=== PATIENT | male | born 1965 | race African-American/Black ===

== ENCOUNTER 2024-01-22 17:47 | Inpatient (IN) | payer OTHER ==
[2024-01-22 18:59] VITALS: BMI 22.6
[2024-01-22] MEDS ORDERED: POLYETHYLENE GLYCOL (HEALTHYLAX) 3350 17 GM PACKET PO PRN (20:35)
[2024-01-22] MEDS ORDERED: BISMUTH SUBSALICYLATE 524 MG/30 ML PO PRN (20:35)
[2024-01-22] MEDS ORDERED: MAGNESIUM HYDROX 2400MG/30ML ORAL SUSPENSION 30 ML CUP PO PRN (20:35)
[2024-01-22] MEDS ORDERED: guaiFENesin 600 MG TABLET.ER (FP) PO PRN (20:35)
[2024-01-22] MEDS ORDERED: NICOTINE POLACRILEX 4 MG GUM BUC PRN (20:35)
[2024-01-22] MEDS ORDERED: BENZOCAINE/MENTHOL (CHLORASEPTIC ) LOZENGE MM PRN (20:35)
[2024-01-22] MEDS ORDERED: BENZONATATE 200 MG CAPSULE PO PRN (20:35)
[2024-01-22] MEDS ORDERED: IBUPROFEN 600 MG TABLET (FP) PO PRN (20:35)
[2024-01-22] MEDS ORDERED: NALOXONE (NARCAN) HCL 4 MG/0.1 ML SPRAY NS PRN (20:35)
[2024-01-22] MEDS ORDERED: IBUPROFEN 400 MG TABLET (FP) PO PRN (20:35)
[2024-01-22] MEDS ORDERED: NALOXONE HCL 0.4 MG/ML VIAL IM PRN (20:35)
[2024-01-22] MEDS ORDERED: INSULIN (NOVOLOG) ASPART 100 UNITS/ML 10ML VIAL SQ SCH (22:00)
[2024-01-22] MEDS ORDERED: INSULIN (LEVEMIR) 100 UNITS/ML UNITS SQ ONE (22:19)
[2024-01-22] MEDS: ASPIRIN COATED 81 MG TABLET.EC PO SCH (22:21)
[2024-01-22] MEDS: MELATONIN 5 MG TABLETS PO SCH (22:21)
[2024-01-22] MEDS: INSULIN (LEVEMIR) 100 UNITS/ML UNITS SQ ONE (22:21)
[2024-01-22] MEDS: ATORVASTATIN CA 20 MG TABLET (FP) PO SCH (22:21)
[2024-01-22] MEDS: INSULIN (NOVOLOG) ASPART 100 UNITS/ML 10ML VIAL SQ ONE (22:21)
[2024-01-22] MEDS: THIAMINE 100 MG TABLET PO SCH (22:22)
[2024-01-23] MEDS: INSULIN ASPART SLIDING SCALE (NOVOLOG) 1 VIAL SQ SCH ×2 (06:33→17:43)
[2024-01-23] MEDS: metFORMIN HCL 500 MG TABLET (FP) PO SCH (07:41)
[2024-01-23] MEDS: ACETAMINOPHEN 325 MG TABLET (FP) PO PRN (07:49)
[2024-01-23] MEDS: ONDANSETRON *ODT* 4 MG TABLET SL PRN (07:50)
[2024-01-23] MEDS: hydrOXYzine PAMOATE 25 MG CAPSULE (FP) PO PRN (07:50)
[2024-01-23] MEDS ORDERED: methaDONE HCL 10 MG TABLET PO SCH (08:30)
[2024-01-23] MEDS: cloNIDine HCL 0.1 MG TABLET PO SCH (09:10)
[2024-01-23] MEDS: methaDONE 40 MG, methaDONE 20 MG PO SCH (09:11)
[2024-01-23] MEDS: PRENATAL VITAMINS W/ FOLIC ACID TABLET (FP) PO SCH (09:12)
[2024-01-23] MEDS: methaDONE HCL 10 MG TABLET PO ONE (09:12)
[2024-01-23] MEDS: NICOTINE 14 MG/24 HOURS TOPICAL PATCH TD SCH (09:16)
[2024-01-23] MEDS: HYDROCHLOROTHIAZIDE 12.5 MG CAPSULE (FP) PO SCH (10:12)
[2024-01-23 11:46] LABS: HEMATOCRIT 35.5 % (35.4-49); HEMOGLOBIN 11.8 GM/dL (11.7-16.9); MCH 28.9 pg (25.7-33.7); MCHC 33.2 g/dl (32.0-35.9); MEAN CELL VOLUME 87.2 fl (80-96); MEAN PLT VOLUME 7.7 fl (7.5-11.1); PLATELET COUNT 298 10^3/uL (134-434); RBC 4.08 M/mm3 (4.00-5.60); RDW 16.2 % (11.9-15.9); WHITE BLOOD COUNT 5.1 K/mm3 (4.0-10.0)
[2024-01-23 11:59] LABS: CHLORIDE 97 mmol/L (98-107); POTASSIUM 3.9 mmol/L (3.5-5.1); SODIUM 134 mmol/L (136-145)
[2024-01-23 12:00] LABS: ALBUMIN 3.3 g/dl (3.4-5.0); ANION GAP 8 mmol/L (4-13); BLOOD UREA NITROGEN 26.1 mg/dL (7-18); CALCIUM 9.3 mg/dL (8.5-10.1); CO2 29 mmol/L (21-32)
[2024-01-23 12:01] LABS: GLUCOSE,RANDOM 313 mg/dL (74-106)
[2024-01-23 12:04] LABS: CREATININE 1.3 mg/dL (0.55-1.3); SGOT/AST 10 U/L (15-37); SGPT/ALT 15 U/L (13-61)
[2024-01-23 12:06] LABS: BILIRUBIN,TOTAL 0.5 mg/dL (0.2-1); TOT PROT 7.2 g/dl (6.4-8.2)
[2024-01-23 12:07] LABS: ALK PHOS 84 U/L (45-117)
[2024-01-23] MEDS: INSULIN (NOVOLOG) ASPART 100 UNITS/ML 10ML VIAL SQ SCH (17:02)
[2024-01-23] MEDS: INSULIN (LEVEMIR) 100 UNITS/ML UNITS SQ SCH (21:31)
[2024-01-24] MEDS ORDERED: INSULIN (NOVOLOG) ASPART 100 UNITS/ML 10ML VIAL ONE ×3 (07:22→10:46)
[2024-01-24] MEDS: methaDONE HCL 10 MG TABLET PO ONE (09:24)
[2024-01-24] MEDS: metFORMIN HCL 500 MG TABLET (FP) PO SCH (16:55)
[2024-01-24] MEDS: INSULIN (LEVEMIR) 100 UNITS/ML UNITS SQ SCH (21:53)
[2024-01-25] MEDS ORDERED: cloNIDine HCL 0.1 MG TABLET PO PRN
[2024-01-25] MEDS ORDERED: INSULIN (NOVOLOG) ASPART 100 UNITS/ML 10ML VIAL ONE ×2 (07:32→16:48)
[2024-01-25] MEDS: INSULIN (NOVOLOG) ASPART 100 UNITS/ML 10ML VIAL SQ SCH (07:41)
[2024-01-25] MEDS: methaDONE HCL 10 MG TABLET PO ONE (09:17)
[2024-01-26] MEDS: LOPERAMIDE HCL 2 MG CAPSULE PO PRN (06:48)
[2024-01-26] MEDS: methaDONE HCL 40 MG DISPERSABLE TABLET PO ONE (09:32)
[2024-01-26] MEDS ORDERED: methaDONE HCL 40 MG DISPERSABLE TABLET PO SCH (14:19)
[2024-01-26] MEDS: methaDONE 80 MG, methaDONE 20 MG PO SCH (15:49)
[2024-01-26] MEDS: MAG HYDROX/AL HYDROX/SIMETH 30 ML UNIT-DOSE CUP PO PRN (23:19)
[2024-01-27] MEDS: DICYCLOMINE HCL 10 MG CAPSULE PO PRN (00:30)
[2024-01-27] MEDS: methaDONE 80 MG, methaDONE 20 MG PO SCH (05:07)
[2024-01-27] MEDS ORDERED: methaDONE 40 MG, methaDONE 10 MG PO ONE (10:00)
[2024-01-28 06:38] VITALS: RESP 18
[2024-01-28] MEDS ORDERED: TRIMETHOBENZAMIDE HCL 200MG/2ML INJ IM PRN (09:22)
[2024-01-28 09:24] VITALS: BP 117/69; PULSE 93; TEMP 96.9
[2024-01-28] MEDS: DIPHENOXYLATE 2.5/ATROPINE.025 1 COMBO TABLET PO ONE (09:41)
[2024-01-28] MEDS ORDERED: methaDONE 40 MG, methaDONE 20 MG PO ONE (10:00)
== END 2024-01-28 09:42 | disposition home or self-care (01) | DRG 897 ==
LOC: YASAS 17:47 → Y6N 21:12
PROVIDERS: ADMIT Allergy & Immunology; ATTEND Surgery
PROC: HZ2ZZZZ Detoxification Services for Substance Abuse Treatment (ICD-10-PCS; principal; 2024-01-22)
DX: F11.23 Opioid dependence with withdrawal (principal); F14.20 Cocaine dependence, uncomplicated; F17.210 Nicotine dependence, cigarettes, uncomplicated; D86.9 Sarcoidosis, unspecified; I10 Essential (primary) hypertension; E78.5 Hyperlipidemia, unspecified; E11.42 Type 2 diabetes mellitus with diabetic polyneuropathy; Z79.4 Long term (current) use of insulin; M17.0 Bilateral primary osteoarthritis of knee; M54.50 Low back pain, unspecified; G89.29 Other chronic pain; Z99.89 Dependence on other enabling machines and devices
CPT/HCPCS: 36415; 80053; 80305; 80307; 82962; 83036; 85027; 86780; 93005; 93010; Q0162